=== PATIENT | female | born 1985 | race Caucasian/White ===

== ENCOUNTER 2017-03-31 10:29 | Emergency (ER) | payer MEDICAID, OTHER ==
[~2017-03-31] VITALS: Ht 154.9 cm; Wt 72.0 kg
[2017-03-31 10:33] VITALS: BP 132/62; PULSE 80; RESP 16; TEMP 98.1; O2SAT 100
[2017-03-31] MEDS ORDERED: SODIUM CHLOR 0.9% 1000 ML INJ 1,000 ML IV SCH (10:42)
[2017-03-31] MEDS ORDERED: ONDANSETRON HCL 4 MG/2 ML VIAL IVP ONE (10:45)
[2017-03-31] MEDS ORDERED: MORPHINE SULFATE 4 MG/ML INJ IV PUSH ONE (10:45)
[2017-03-31] MEDS ORDERED: SODIUM CHLORIDE 0.9% FLUSH 10 ML FLUSH IV FLUSH PRN (10:45)
[2017-03-31] MEDS ORDERED: KETOROLAC TROMETHAMINE 30 MG/ML (IVP) VIAL IVP ONE (10:45)
[2017-03-31] MEDS ORDERED: LUPR7.5I2 IM (10:58)
[2017-03-31] MEDS ORDERED: NORE5TAB PO (10:58)
[2017-03-31 11:00] VITALS: O2SAT 97
[2017-03-31 11:10] VITALS: BP 128/67; PULSE 65; RESP 16; O2SAT 98
[2017-03-31 11:11] LABS: CHLORIDE 111 MEQ/L (98-107); SODIUM (NA) 142 MEQ/L (136-145)
[2017-03-31 11:16] LABS: ANION GAP 8 MEQ/L (5-15); BICARBONATE 22.7 MEQ/L (21.0-32.0); BLOOD UREA NITROGEN 10 MG/DL (7-18)
[2017-03-31 11:19] LABS: ALT (GPT) 36 U/L (10-53); AST (GOT) 16 U/L (15-37); AUTOMATED NEUTROPHIL # 6.6 TH/MM3 (1.8-7.7); BASOPHIL % 0.4 % (0.0-2.0); EOSINOPHIL # 0.2 TH/MM3 (0-0.4); EOSINOPHIL % 2.3 % (0.0-4.0); GLOMERULAR FILTRATION RATE 93 ML/MIN (>89); HEMATOCRIT 46.5 % (35.0-46.0); LYMPH % 17.4 % (9.0-44.0); LYMPHOCYTE # 1.5 TH/MM3 (1.0-4.8); MEAN CELL VOLUME 90.3 FL (80.0-100.0); MEAN CORPUSCULAR HEMOGLOBIN 29.9 PG (27.0-34.0); MEAN CORPUSCULAR HGB CONC 33.1 % (32.0-36.0); MONO % 4.5 % (0.0-8.0); NEUT % 75.4 % (16.0-70.0); PLATELET COUNT 381 TH/MM3 (150-450); RED BLOOD COUNT 5.15 MIL/MM3 (4.00-5.30); RED CELL DISTRIBUTION WIDTH 12.5 % (11.6-17.2); WHITE BLOOD COUNT 8.7 TH/MM3 (4.0-11.0)
[2017-03-31 11:20] LABS: TOTAL BILIRUBIN ADULT 0.6 MG/DL (0.2-1.0)
[2017-03-31 11:22] LABS: ALKALINE PHOSPHATASE 59 U/L (45-117)
[2017-03-31 11:24] LABS: HEMO FLAGS DIFF FINAL
--- NOTE | 2017-03-31 11:36 | PD ---
HPI Chief Complaint: Flank/Kidney Pain Time Seen by Provider: 10:38 Travel History International Travel<30 days: No Contact w/Intl Traveler<30days: No Traveled to known affect area: No History of Present Illness HPI Patient is a 31 year old female who comes in because she believes she has a kidney infection. She says she has frequent infections and is currently on vacation from [place]. She says she constantly has burning when she urinates, this has not changed. She denies fever or chills. She says she has been nauseous, but denies any vomiting. She says she has a chronic vaginal discharge that has not changed. She says the pain is in her left flank and radiates down her abdomen. PFSH Past Medical History ?: Not LMP: MENOPAUSE PER PT. Past Surgical History Appendectomy: Yes Oral Surgery: Yes Other Surgery: Yes (BLADDER SURGERY) Social History Alcohol Use: Yes Tobacco Use: Yes Substance Use: No Allergies-Medications (Allergen,Severity, Reaction): Coded Allergies: No Known Allergies (Unverified , 03/31/17) Reported Meds & Prescriptions Reported Meds & Active Scripts Active Reported Norethindrone (Norethindrone Acetate) 5 Mg Tab 2.5 Mg PO DAILY Lupron Depot Inj Kit (Leuprolide Acetate) 7.5 Mg Kit 7.5 Mg IM ONCE Review of Systems Except as stated in HPI: all other systems reviewed are Neg General / Constitutional: No: Fever, Chills HENT: No: Headaches, Lightheadedness Cardiovascular: No: Chest Pain or Discomfort Respiratory: No: Shortness of Breath Gastrointestinal: Positive: Nausea, Abdominal Pain, No: Vomiting Genitourinary: Positive: Dysuria, Flank Pain Skin: No Rash, No Change in Pigmentation Neurologic: No: Weakness, Dizziness Physical Exam Narrative GENERAL: Awake and alert, in no acute distress. SKIN: Focused skin assessment warm/dry. HEAD: Atraumatic. Normocephalic. EYES: Pupils equal and round. No scleral icterus. ENT: Mucous membranes pink and moist. NECK: Trachea midline. No JVD. CARDIOVASCULAR: Regular rate and rhythm. No murmur appreciated. RESPIRATORY: No accessory muscle use. Clear to auscultation. Breath sounds equal bilaterally. GASTROINTESTINAL: Abdomen soft, nondistended. Left sided CVA tenderness. Tender to palpation along left side of the abdomen. MUSCULOSKELETAL: No obvious deformities. No clubbing. No cyanosis. No edema. NEUROLOGICAL: Awake and alert. No obvious cranial nerve deficits. Motor grossly within normal limits. Normal speech. PSYCHIATRIC: Appropriate mood and affect; insight and judgment normal. Data Data Last Documented VS Vital Signs Date Time Temp Pulse Resp B/P Pulse Ox O2 Delivery O2 Flow Rate FiO2 03/31/17 11:10 65 16 128/67 98 03/31/17 10:33 98.1 Orders Complete Blood Count With Diff (03/31/17 10:42) Comprehensive Metabolic Panel (03/31/17 10:42) Urinalysis - C+S If Indicated (03/31/17 10:42) Ua Includes Microscopic (03/31/17 10:42) Ct Abd/Pel W/O Iv Contrast (03/31/17 10:42) Iv Access Insert/Monitor (03/31/17 10:42) Ecg Monitoring (03/31/17 10:42) Oximetry (03/31/17 10:42) Morphine Inj (Morphine Inj) (03/31/17 10:45) Ondansetron Inj (Zofran Inj) (03/31/17 10:45) Sodium Chlor 0.9% 1000 Ml Inj (Ns 1000 M (03/31/17 10:42) Sodium Chloride 0.9% Flush (Ns Flush) (03/31/17 10:45) Ketorolac Inj (Toradol Inj) (03/31/17 10:45) Urine Culture (03/31/17 11:45) Ceftriaxone Inj (Rocephin Inj) (03/31/17 12:15) Labs Laboratory Tests Test 03/31/17 03/31/17 10:50 11:45 White Blood Count 8.7 TH/MM3 Red Blood Count 5.15 MIL/MM3 Hemoglobin 15.4 GM/DL Hematocrit 46.5 % Mean Corpuscular Volume 90.3 FL Mean Corpuscular Hemoglobin 29.9 PG Mean Corpuscular Hemoglobin 33.1 % Concent Red Cell Distribution Width 12.5 % Platelet Count 381 TH/MM3 Mean Platelet Volume 8.1 FL Neutrophils (%) (Auto) 75.4 % Lymphocytes (%) (Auto) 17.4 % Monocytes (%) (Auto) 4.5 % Eosinophils (%) (Auto) 2.3 % Basophils (%) (Auto) 0.4 % Neutrophils # (Auto) 6.6 TH/MM3 Lymphocytes # (Auto) 1.5 TH/MM3 Monocytes # (Auto) 0.4 TH/MM3 Eosinophils # (Auto) 0.2 TH/MM3 Basophils # (Auto) 0.0 TH/MM3 CBC Comment DIFF FINAL Differential Comment Sodium Level 142 MEQ/L Potassium Level 4.0 MEQ/L Chloride Level 111 MEQ/L Carbon Dioxide Level 22.7 MEQ/L Anion Gap 8 MEQ/L Blood Urea Nitrogen 10 MG/DL Creatinine 0.72 MG/DL Estimat Glomerular Filtration 93 ML/MIN Rate Random Glucose 104 MG/DL Calcium Level 9.4 MG/DL Total Bilirubin 0.6 MG/DL Aspartate Amino Transf 16 U/L (AST/SGOT) Alanine Aminotransferase 36 U/L (ALT/SGPT) Alkaline Phosphatase 59 U/L Total Protein 8.0 GM/DL Albumin 4.0 GM/DL Urine Collection Type CLEAN CATCH Urine Color YELLOW Urine Turbidity SLIGHT Urine pH 6.0 Urine Specific [place] 1.018 Urine Protein NEG mg/dL Urine Glucose (UA) NEG mg/dL Urine Ketones NEG mg/dL Urine Occult Blood NEG Urine Nitrite NEG Urine Bilirubin NEG Urine Leukocyte Esterase SMALL Urine WBC 20-24 /hpf Urine WBC Clumps FEW Urine Squamous Epithelial > 8 /hpf Cells Urine Amorphous Sediment MOD Urine Bacteria FEW /hpf Microscopic Urinalysis Comment CULTURE INDICATED Urine Collection Time 1145 MDM Medical Decision Making Medical Screen Exam Complete: Yes Emergency Medical Condition: Yes Differential Diagnosis UTI versus pyelonephritis versus renal stone Narrative Course Patient is a 31-year-old female comes in complaining of flank pain. Exam shows left CVA tenderness and left-sided abdominal pain. IV status, labs sent. Labs show no acute abnormalities, creatinine is within normal limits. Urinalysis is positive for infection. CT abdomen and pelvis shows no acute abnormalities. Patient given IV fluids, Zofran, Toradol, morphine. Given a dose of IV Rocephin. She was recently on Cipro for UTI. He is now she'll be discharged with Keflex. Advised to return to the ED as needed for any worsening symptoms. Advised follow-up with her doctors. Diagnosis Primary Impression: UTI (urinary tract infection) Qualified Code: N30.00 - Acute cystitis without hematuria Patient Instructions: General Instructions, Urinary Tract Infection in Women ( ED) Additional Instructions: Drink plenty of fluids. Take Ibuprofen or Tylenol as needed for pain. Take Lortab for extreme pain (do not combine with Tylenol). Finish all of your antibiotic. Follow up with your primary care doctor. Return to the ED as needed for any worsening symptoms. Scripts Hydrocodone-Acetaminophen (Lortab)5-325 Mg Tab1 Tab PO Q6H PRN (PAIN) #9 TAB Ref 0 Prov:Emelyn Walton MD 03/31/17 Cephalexin (Keflex)500 Mg Fln906 Mg PO Q6H 7 Days Ref 0 Prov:Emelyn Walton MD 03/31/17 Disposition: 01 DISCHARGE HOME Condition: Stable Emelyn Walton MD Mar 31, 2017 11:35
[2017-03-31 12:04] LABS: BLOOD, URINE NEG (NEG); GLUCOSE,URINE NEG (NEG); KETONE, URINE NEG (NEG); NITRITE,URINE NEG (NEG)
[2017-03-31 12:12] LABS: BACTERIA, URINE FEW /hpf; COMMENT (UR) CULTURE INDICATED; COMMENT2 (UR) MUCOUS PRESENT; CULTURE IF INDICATED CULTURE INDICATED; METHOD OF COLLECTION CLEAN CATCH; SQUAMOUS EPITHELIAL CELL URINE > 8 /hpf (0-5); URINE COLOR YELLOW (YELLW/STRAW)
[2017-03-31] MEDS ORDERED: cefTRIAXone INJ 1,000 MG in SODIUM CHLORIDE 0.9% INJ 100 ML IV ONE (12:15)
--- NOTE | 2017-03-31 12:15 | RADRPT ---
EXAM DATE/TIME: 03/31/2017 11:23 [facility] COMPARISON: No previous studies available for comparison. INDICATIONS : Left flank pain. ORAL CONTRAST: No oral contrast ingested. RADIATION DOSE: 15.66 CTDIvol (mGy) MEDICAL HISTORY : None SURGICAL HISTORY : Appendectomy. Bladder sling. ENCOUNTER: Initial ACUITY: 1 day PAIN SCALE: 8/10 LOCATION: Left flank TECHNIQUE: Volumetric scanning of the abdomen and pelvis was performed. Using automated exposure control and ad justment of the mA and/or kV according to patient size, radiation dose was kept as low as reasonably achievable to obtain optimal diagnostic quality images. DICOM format image data is available electro nically for review and comparison. FINDINGS: LOWER LUNGS: The visualized lower lungs are clear. LIVER: Homogeneous density without lesion. There is no dilation of the biliary tree. No calcified gallston es. SPLEEN: Normal size without lesion. PANCREAS: Within normal limits. KIDNEYS: Normal in size and shape. There is no mass, stone, or hydronephrosis. ADRENAL GLANDS: Within normal limits. VASCULAR: There is no aortic aneurysm. BOWEL/MESENTERY: The stomach, small bowel, and colon demonstrate no acute abnormality. There is no free intraperitone al air or fluid. ABDOMINAL WALL: Within normal limits. RETROPERITONEUM: There is no lymphadenopathy. BLADDER: No wall thickening or mass. REPRODUCTIVE: Small less than 2 cm cyst both adnexa without free fluid. INGUINAL: There is no lymphadenopathy or hernia. MUSCULOSKELETAL: Mild degenerative changes lower lumbar spine. CONCLUSION: I do not see evidence for calculi or obstruction. Pyelonephritis cannot be excluded without contrast . Edward Jeffers MD FACR on March 31, 2017 at 12:11 Board Certified Radiologist. This report was verified electronically.
[2017-03-31] MEDS ORDERED: CEPH-460 PO (12:23)
[2017-03-31] MEDS ORDERED: HYDR-3533 PO (12:23)
[2017-03-31 13:19] VITALS: BP 113/70
== END 2017-03-31 13:21 | disposition home or self-care (01) ==
LOC: PHED 10:29
DX: N30.00 Acute cystitis without hematuria (principal); B96.89 Other specified bacterial agents as the cause of diseases classified elsewhere; Z72.0 Tobacco use
CPT/HCPCS: 74176; 80053; 81001; 85025; 87086; 96361; 96365; 96375; 99285; J0696; J1885; J2270; J2405; J7030